=== PATIENT | male | born 1990 | race Caucasian/White ===

== ENCOUNTER 2016-10-01 22:00 | Emergency (ER) | payer SELFPAY ==
[~2016-10-01] VITALS: Ht 188 cm; Wt 80.0 kg
[2016-10-01 23:48] LABS: HEMATOCRIT 44.6 % (39.0-50.0); HEMOGLOBIN 15.6 g/dl (14.0-18.0); IMMATURE GRANULOCYTES 0.2 % (0.0-1.0); MEAN CELL VOLUME 86.8 fL CALC (80.0-100.0); MEAN CORPUSCULAR HGB 30.4 pG CALC (26.0-32.0); NEUT# 5.42 thou/uL (1.82-7.42); RED BLOOD COUNT 5.14 mill/uL (4.70-6.10)
[2016-10-02 00:07] LABS: URINE BILIRUBIN - DIPSTICK NEGATIVE (NEGATIVE); URINE BLOOD DIPSTICK NEGATIVE (NEGATIVE); URINE CLARITY CLEAR; URINE COLOR YELLOW; URINE GLUCOSE - DIPSTICK NEGATIVE (NEGATIVE); URINE KETONE NEGATIVE (NEGATIVE); URINE LEUK ESTERASE NEGATIVE (NEGATIVE); URINE NITRITE - DIPSTICK NEGATIVE (Negative); URINE PH 6.5 (4.5-8.0); URINE PROTEIN - DIPSTICK NEGATIVE (NEG-TRACE); URINE SPECIFIC GRAVITY 1.015; URINE UROBILINOGEN - DIPSTICK 0.2 E.U./dL (0.2)
[2016-10-02 00:11] LABS: ALBUMIN 4.5 g/dL (3.2-5.0); ALKALINE PHOSPHATASE 82 u/l (38-126); ANION GAP 15 (6-22 (CALC)); BILIRUBIN, TOTAL 0.3 mg/dL (0.0-1.4); BUN 17 mg/dL (9-20); BUN/CREATININE RATIO 20 (12-20 (CALC)); CARBON DIOXIDE 26 mmol/l (22-30); CHLORIDE 105 mmol/l (95-108); CREATININE 0.9 mg/dL (0.7-1.3); GFR > 60 ML/MIN (>=60 (CALC)); GFR FOR AFR.AMER. > 60 ML/MIN (>=60 (CALC)); GLUCOSE 82 mg/dL (75-110); POTASSIUM 4.2 mmol/l (3.5-5.1); SGOT/AST 20 u/l (17-59); SGPT/ALT 32 u/l (21-72); SODIUM 142 mmol/l (137-146); TOTAL PROTEIN 7.7 g/dL (6.3-8.2)
[2016-10-02 00:13] LABS: BARBITURATES NEGATIVE (NEGATIVE); COCAINE NEGATIVE (NEGATIVE); METHADONE NEGATIVE (NEGATIVE); OXCYCODONE NEGATIVE (NEGATIVE); TETRAHYDROCANNABIONOL NEGATIVE (NEGATIVE); TRICYLIC ANTIDEPRESSANTS NEGATIVE (NEGATIVE)
[2016-10-02] MEDS ORDERED: NAPROSYN500 MG PO (00:26)
[2016-10-02 01:00] VITALS: BP 128/68
== END 2016-10-02 01:10 | disposition home or self-care (01) | DRG 556 ==
LOC: ED 22:00
PROVIDERS: Emergency Medicine
DX: M79.1 Myalgia (principal); F17.210 Nicotine dependence, cigarettes, uncomplicated; R07.9 Chest pain, unspecified; X58.XXXA Exposure to other specified factors, initial encounter; Y93.G3 Activity, cooking and baking; Y92.89 Other specified places as the place of occurrence of the external cause

== ENCOUNTER 2017-01-04 00:23 | Emergency (ER) | payer SELFPAY ==
[~2017-01-04] VITALS: Ht 188 cm; Wt 82.2 kg
[~2017-01-04 00:23] MED LIST: NAPROSYN500 MG PO
[2017-01-04 00:47] VITALS: BP 132/90
[2017-01-04] MEDS ORDERED: LORTAB 10-325 M1 TAB PO (01:21)
[2017-01-04] MEDS ORDERED: CLEOCIN300 MG PO (01:21)
== END 2017-01-04 01:30 | disposition home or self-care (01) | DRG 159 ==
LOC: ED 00:23
DX: K04.7 Periapical abscess without sinus (principal); F17.210 Nicotine dependence, cigarettes, uncomplicated

== ENCOUNTER 2018-06-25 19:05 | Emergency (ER) | payer SELFPAY ==
[~2018-06-25] VITALS: Ht 182.9 cm; Wt 84.1 kg
[~2018-06-25 19:05] MED LIST changes: +CLEOCIN300 MG PO; +LORTAB 10-325 M1 TAB PO
[2018-06-25] MEDS ORDERED: PERCOCET 5/325M1 TAB PO (19:54)
[2018-06-25] MEDS ORDERED: CLINDAMYCIN300 M1 PO (19:54)
[2018-06-25] MEDS ORDERED: IBUPROFEN600 MG PO (19:54)
[2018-06-25 20:18] VITALS: BP 134/95
== END 2018-06-25 20:19 | disposition home or self-care (01) | DRG 159 ==
LOC: ED 19:05
DX: K08.89 Other specified disorders of teeth and supporting structures (principal); K02.9 Dental caries, unspecified; R22.0 Localized swelling, mass and lump, head; H92.02 Otalgia, left ear; F17.210 Nicotine dependence, cigarettes, uncomplicated; R50.9 Fever, unspecified

== ENCOUNTER 2019-03-05 23:49 | Emergency (ER) | payer SELFPAY ==
[~2019-03-05] VITALS: Ht 182.9 cm; Wt 84.0 kg
[~2019-03-05 23:49] MED LIST changes: +CLINDAMYCIN300 M1 PO; +IBUPROFEN600 MG PO; +PERCOCET 5/325M1 TAB PO
[2019-03-06 01:03] LABS: HEMATOCRIT 45.8 % (39.0-50.0); HEMOGLOBIN 15.7 g/dl (14.0-18.0); IMMATURE GRANULOCYTES 0.3 % (0.0-5.0); MEAN CELL VOLUME 90.3 fL CALC (80.0-100.0); MEAN CORPUSCULAR HGB CONC 34.3 g/L CALC (32.0-36.0); NEUT# 6.07 thou/uL (1.82-7.42); RED BLOOD COUNT 5.07 mill/uL (4.70-6.10); RED CELL DISTRI WIDTH 13.2 % (11.5-15.5)
[2019-03-06 01:08] LABS: ALBUMIN 4.3 g/dL (3.2-5.0); ALKALINE PHOSPHATASE 74 u/l (38-126); ANION GAP 12 (6-22 (CALC)); BUN 15 mg/dL (9-20); BUN/CREATININE RATIO 17 (12-20 (CALC)); CARBON DIOXIDE 31 mmol/l (22-30); CHLORIDE 102 mmol/l (95-108); CREATININE 0.9 mg/dL (0.7-1.3); GFR > 60 ML/MIN (>=60 (CALC)); GFR FOR AFR.AMER. > 60 ML/MIN (>=60 (CALC)); LIPASE 134 u/l (23-300); POTASSIUM 4.3 mmol/l (3.5-5.1); SGOT/AST 24 u/l (17-59); SODIUM 139 mmol/l (137-146)
[2019-03-06 01:14] LABS: BILIRUBIN, TOTAL 0.6 mg/dL (0.0-1.4)
[2019-03-06] MEDS ORDERED: CIPROFLOXACN500 MG PO (01:32)
[2019-03-06 01:45] VITALS: BP 130/76
== END 2019-03-06 01:45 | disposition home or self-care (01) | DRG 392 ==
LOC: ED 23:49
PROVIDERS: Emergency Medicine
DX: R11.2 Nausea with vomiting, unspecified (principal); R19.7 Diarrhea, unspecified; F17.210 Nicotine dependence, cigarettes, uncomplicated

== ENCOUNTER 2019-08-10 | Emergency (ER) | payer SELFPAY ==
[~2019-08-10] MED LIST changes: +CIPROFLOXACN500 MG PO
[2019-08-10] MEDS ORDERED: ZITHROMAX500 MG PO (19:57)
== END 2019-08-10 20:31 | disposition home or self-care (01) | DRG 203 ==
DX: J20.9 Acute bronchitis, unspecified (principal); F17.210 Nicotine dependence, cigarettes, uncomplicated